=== PATIENT | female | born 1985 | race African-American/Black ===

== ENCOUNTER 2021-11-02 10:10 | Inpatient (IN) | payer OTHER ==
[2021-11-02] MEDS ORDERED: ELECTROLYTE-148 SOLN 1,000 ML IV ONE (10:30)
[2021-11-02 11:56] VITALS: BMI 34.4
[2021-11-02] MEDS ORDERED: BUTORPHANOL TARTRATE 2 MG/ML VIAL ONE (12:06)
[2021-11-02] MEDS ORDERED: AMPICILLIN SODIUM 2 GM VIAL ONE (12:06)
[2021-11-02] MEDS ORDERED: PROMETHAZINE HCL 25 MG/1 ML VIAL ONE (12:06)
[2021-11-02] MEDS ORDERED: PROMETHAZINE HCL 25 MG/1 ML VIAL IVPB ONE (12:10)
[2021-11-02] MEDS ORDERED: BUTORPHANOL TARTRATE 2 MG/ML VIAL IVPB ONE (12:10)
[2021-11-02] MEDS ORDERED: AMPICILLIN - 2 GM in DEXTROSE 5%-WATER 100 ML IVPB ONE (12:15)
[2021-11-02 12:23] LABS: BASO % 0.3 % (0-2.0); EOS % 0.1 % (0-4.5); HEMATOCRIT 33.5 % (32.4-45.2); HEMOGLOBIN 10.3 GM/dL (10.7-15.3); LYMPH % 8.4 % (8-40); MCH 26.7 pg (25.7-33.7); MCHC 30.9 g/dl (32.0-36.0); MEAN CELL VOLUME 86.4 fl (80-96); MEAN PLT VOLUME 9.5 fl (7.5-11.1); MONO % 3.6 % (3.8-10.2); NEUT % 87.6 % (42.8-82.8); PLATELET COUNT 186 10^3/uL (134-434); RBC 3.88 M/mm3 (3.60-5.2); RDW 18.4 % (11.6-15.6); WHITE BLOOD COUNT 13.1 K/mm3 (4.0-10.0)
[2021-11-02 12:24] LABS: INR 0.98 (0.83-1.09); PROTHROMBIN TIME (PATIENT) 11.3 SEC (9.7-13.0)
[2021-11-02 12:27] LABS: ACTIVATED PTT 27.3 SECONDS (25.2-36.5)
[2021-11-02 12:35] LABS: BLOOD UREA NITROGEN 10.1 mg/dL (7-18)
[2021-11-02 12:39] LABS: CREATININE 0.8 mg/dL (0.55-1.3)
[2021-11-02 13:30] LABS: HIV INTERPRETATION NEGATIVE (NEGATIVE)
[2021-11-02] MEDS ORDERED: OXYTOCIN 30 UNITS in 0.9% NS 30 UNIT/500 ML INFUS.BAG IVPB ONE (14:24)
[2021-11-02] MEDS ORDERED: ELECTROLYTE-148 SOLN 1,000 ML IV SCH (14:45)
[2021-11-02] MEDS ORDERED: OXYTOCIN 30 UNITS in 0.9% NS 30 UNIT/500 ML INFUS.BAG IVPB SCH (14:45)
[2021-11-02] MEDS ORDERED: AMPICILLIN - 1 GM in DEXTROSE 5%-WATER 100 ML IVPB SCH ×2 (15:00→16:15)
[2021-11-02] MEDS ORDERED: FENTANYL/BUPIVACAINE/NS/PF - PCEA - 50 ML DISP.SYRIN EP ONE (15:05)
[2021-11-02] MEDS ORDERED: BUPIVACAINE HCL/PF 0.25% (2.5MG/ML) 10 ML VIAL ONE (15:21)
[2021-11-02] MEDS ORDERED: NALOXONE HCL 0.4 MG/ML VIAL IVPUSH PRN ×2 (15:25)
[2021-11-02] MEDS ORDERED: FENTANYL/BUPIVACAINE/NS/PF - PCEA - 50 ML DISP.SYRIN EP SCH ×2 (15:30)
[2021-11-02] MEDS ORDERED: AMPICILLIN SODIUM 1 GM VIAL ONE (16:26)
[2021-11-02] MEDS ORDERED: LIDOCAINE HCL/PF 2% SDV 5ML VIAL ONE (17:57)
[2021-11-02] MEDS ORDERED: LIDOCAINE HCL/EPINEPHRINE/PF 20 ML VIAL ONE (18:02)
[2021-11-02] MEDS ORDERED: morphine SULFATE/PF 1 MG/2 ML (2cc Syringe - QUVA) ONE (18:04)
[2021-11-02] MEDS ORDERED: ePHEDrine SULFATE 50 MG/1 ML AMPULE ONE (18:09)
[2021-11-02] MEDS: OXYTOCIN 20 UNITS in 0.9% NS 20 UNIT/1,000 ML INFUS.BAG IV SCH ×2 (18:35→20:45)
[2021-11-02] MEDS ORDERED: ACETAMINOPHEN 325 MG TABLET (FP) PO PRN (19:30)
[2021-11-02] MEDS ORDERED: METHYLERGONOVINE MALEATE 0.2 MG/1 ML AMP IM PRN (19:30)
[2021-11-02] MEDS: IBUPROFEN 800 MG/8 ML IJ IVPB PRN (21:44)
[2021-11-02] MEDS: SIMETHICONE 80 MG TAB.CHEW (FP) PO PRN (21:45)
[2021-11-03] MEDS: IBUPROFEN 800 MG/8 ML IJ IVPB PRN (05:52)
[2021-11-03 09:12] LABS: BASO % 0.4 % (0-2.0); EOS % 0.6 % (0-4.5); HEMATOCRIT 28.2 % (32.4-45.2); HEMOGLOBIN 9.1 GM/dL (10.7-15.3); LYMPH % 17.3 % (8-40); MCH 27.8 pg (25.7-33.7); MCHC 32.3 g/dl (32.0-36.0); MEAN CELL VOLUME 86.3 fl (80-96); MEAN PLT VOLUME 9.3 fl (7.5-11.1); MONO % 7.8 % (3.8-10.2); NEUT % 73.9 % (42.8-82.8); PLATELET COUNT 164 10^3/uL (134-434); RBC 3.26 M/mm3 (3.60-5.2); RDW 19.3 % (11.6-15.6); WHITE BLOOD COUNT 13.8 K/mm3 (4.0-10.0)
[2021-11-03] MEDS: PRENATAL VITAMINS W/ FOLIC ACID TABLET (FP) PO SCH (09:46)
[2021-11-03] MEDS: IBUPROFEN 600 MG TABLET (FP) PO PRN ×2 (13:00→20:00)
[2021-11-03] MEDS: SIMETHICONE 80 MG TAB.CHEW (FP) PO PRN ×2 (13:03→20:00)
[2021-11-03] MEDS ORDERED: BISACODYL 10 MG SUPP.RECT RC PRN (19:30)
[2021-11-03] MEDS: SENNOSIDES/DOCUSATE COMBO (SENNA PLUS) TABLET (UD) PO PRN (22:05)
[2021-11-03] MEDS: oxyCODONE HCL 5 MG TABLET PO PRN (22:05)
[2021-11-04] MEDS: IBUPROFEN 600 MG TABLET (FP) PO PRN ×3 (00:17→16:55)
[2021-11-04] MEDS: SIMETHICONE 80 MG TAB.CHEW (FP) PO PRN ×4 (00:17→22:18)
[2021-11-04] MEDS: PRENATAL VITAMINS W/ FOLIC ACID TABLET (FP) PO SCH (09:54)
[2021-11-04] MEDS: oxyCODONE HCL 5 MG TABLET PO PRN (22:18)
[2021-11-04] MEDS: SENNOSIDES/DOCUSATE COMBO (SENNA PLUS) TABLET (UD) PO PRN (22:18)
[2021-11-04 22:50] VITALS: RESP 18
[2021-11-05] MEDS: oxyCODONE HCL 5 MG TABLET PO PRN ×2 (05:17→10:05)
[2021-11-05] MEDS: PRENATAL VITAMINS W/ FOLIC ACID TABLET (FP) PO SCH (10:04)
[2021-11-05] MEDS: SIMETHICONE 80 MG TAB.CHEW (FP) PO PRN (10:05)
[2021-11-05 13:26] VITALS: BP 137/83; PULSE 89; TEMP 98.5
== END 2021-11-05 14:50 | disposition home or self-care (01) | DRG 788 ==
LOC: JLDR 10:10 → J3W 20:24
PROVIDERS: ADMIT Obstetrics & Gynecology; ATTEND Obstetrics & Gynecology
PROC: 10D00Z0 Extraction of Products of Conception, High, Open Approach (ICD-10-PCS; principal; 2021-11-02)
PROC: 10907ZC Drainage of Amniotic Fluid, Therapeutic from Products of Conception, Via Natural or Artificial Opening (ICD-10-PCS; 2021-11-02)
DX: O62.9 Abnormality of forces of labor, unspecified (principal); O64.0XX0 Obstructed labor due to incomplete rotation of fetal head, not applicable or unspecified; O99.824 Streptococcus B carrier state complicating childbirth; Z3A.39 39 weeks gestation of pregnancy; Z37.0 Single live birth
CPT/HCPCS: 36415; 80048; 85025; 85610; 85730; 86780; 86850; 86900; 86901; 87389; 88307-TC; C9803-CS; U0003; U0005